=== PATIENT | female | born 1995 | race American Indian/Alaskan Native ===

== ENCOUNTER 2019-11-28 22:17 | Emergency (ER) | payer BC ==
[2019-11-28] MEDS ORDERED: diphenhydrAMINE 50 MG/ML VIAL IV STA (22:41)
[2019-11-28] MEDS ORDERED: METOCLOPRAMIDE 10 MG/2 ML INJ IV STA (22:41)
[2019-11-28] MEDS ORDERED: SODIUM CHLORIDE 0.9% 1000 ML 1,000 ML IV ONE (22:41)
[2019-11-28 22:49] LABS: Bilirubin,Urine NEG (Negative); Blood,Urine NEG (Negative); Color,Urine Yellow (Yellow); Mucus,Urine 3+ /HPF; Urobilinogen,Urine < 2.0 mg/dL (<2.0)
[2019-11-28 22:59] LABS: Hematocrit 40.9 % (30.3-42.9); Hemoglobin 14.2 gm/dl (10.1-14.3); Mean Corpuscular HGB Conc 35 % (30-34); Mean Corpuscular Volume 87 fl (79-97); Platelet Count 180 K/mm3 (140-440); Red Blood Count 4.72 M/mm3 (3.65-5.03); Red Cell Distribution Width 12.2 % (13.2-15.2)
[2019-11-28 23:19] LABS: Alanine Aminotransferase 18 units/L (7-56); Albumin 4.2 g/dL (3.9-5); BUN/Creatinine Ratio 16; Blood Urea Nitrogen 8 mg/dL (7-17); Calcium 9.6 mg/dL (8.4-10.2); Hemolysis Index 4
--- NOTE | 2019-11-29 | Emergency Department Report ---
ED Abdominal Pain HPI - General Chief Complaint: Nausea/Vomiting/Diarrhea Stated Complaint: 7WEEKS NAUSEA Time Seen by Provider: 11/28/19 23:24 Source: patient Mode of arrival: Ambulatory Limitations: No Limitations - History of Present Illness Initial Comments: 24-year-old -[place] female 7 weeks presents emergency department complaining of one-week history of nausea and vomiting which is been ongoing with no resolution. She follow-up with her primary care provider on this past Friday and was given 2 prescriptions for Reglan 5 mg and a Phenergan suppository but was unsuccessful at resolving her nausea and vomiting. Patient states she has been having cyclic morning sickness which has continued. She went to an urgent care prior to coming to the ER tonight but after close evaluation was advised to come to the ED in case she needed some IV fluids. She reports no hemoptysis no hematemesis no diarrhea or constipation no fevers chills or sweats. Location: diffuse Radiation: none Severity: mild Quality: aching Consistency: constant Improves With: nothing - Related Data Previous Rx's Medication Instructions Recorded Last Taken Type Pyridoxine HCl [Vitamin B-6 100MG 100 mg PO DAILY #20 tablet 11/29/19 Unknown Rx TAB] Allergies Allergy/AdvReac Type Severity Reaction Status Date / Time peanut Allergy Swelling Verified 11/28/19 22:22 ED Review of Systems ROS: Stated complaint: 7WEEKS NAUSEA Other details as noted in HPI Comment: All other systems reviewed and negative ED Past Medical Hx - Past Medical History Previous Medical History?: No - Surgical History Past Surgical History?: No - Social History Smoking Status: Never Smoker Substance Use Type: Alcohol - Medications Home Medications: Home Medications Medication Instructions Recorded Confirmed Last Taken Type Pyridoxine HCl [Vitamin B-6 100MG 100 mg PO DAILY #20 tablet 11/29/19 Unknown Rx TAB] ED Physical Exam - General Limitations: No Limitations General appearance: alert, in no apparent distress - Head Head exam: Present: atraumatic, normocephalic - Eye Eye exam: Present: normal appearance, PERRL, EOMI Pupils: Present: normal accommodation - ENT ENT exam: Present: mucous membranes moist - Neck Neck exam: Present: normal inspection - Respiratory Respiratory exam: Present: normal lung sounds bilaterally. Absent: respiratory distress - Cardiovascular Cardiovascular Exam: Present: regular rate, normal rhythm. Absent: systolic murmur, diastolic murmur, rubs, gallop - GI/Abdominal GI/Abdominal exam: Present: soft, normal bowel sounds - Extremities Exam Extremities exam: Present: normal inspection - Back Exam Back exam: Present: normal inspection - Neurological Exam Neurological exam: Present: alert, oriented X3 - Psychiatric Psychiatric exam: Present: normal affect, normal mood - Skin Skin exam: Present: warm, dry, intact, normal color. Absent: rash ED Course Vital Signs 11/28/19 22:21 Temperature 98.3 F Pulse Rate 79 Respiratory 18 Rate Blood Pressure 116/72 O2 Sat by Pulse 98 Oximetry ED Medical Decision Making - Lab Data Result diagrams: 11/28/19 22:46 11/28/19 22:46 - Medical Decision Making Female presents emergency department complaining of nausea and vomiting without diarrhea. The patient is overall well-appearing and suspected to have hyperemesis gravidarum. Given the history of examination he does not appear to be an emergency cause for the symptoms such as small bowel obstruction, coronary syndrome, bowel ischemia, DKA, pancreatitis, appendicitis, acute abdomen no emergent problem. Patient was treated with Reglan, Benadryl, fluids as well as vitamin D6. After treatment patient is feeling much better tolerating p.o. fluids shows no signs of dehydration Critical care attestation.: If time is entered above; I have spent that time in minutes in the direct care of this critically ill patient, excluding procedure time. ED Disposition Clinical Impression: Hyperemesis gravidarum Disposition: DC-01 TO HOME OR SELFCARE Is pt being admited?: No Does the pt Need Aspirin: No Condition: Stable Instructions: Hyperemesis Gravidarum (ED) Additional Instructions: Please continue with your Reglan that was given your provider call your provider will make them aware of the visit today for further treatment options Prescriptions: Pyridoxine HCl [Vitamin B-6 100MG TAB] 100 mg PO DAILY #20 tablet Referrals: PRIMARY CARE, [Primary Care Provider] - 3-5 Days [facility] [Provider Group] - 3-5 Days
[2019-11-29 02:58] VITALS: BP 114/76
[2019-11-29 03:40] LABS: Basophils % (Manual) 0 % (0.0-1.8); Eosinophils % (Manual) 0 % (0.0-4.3); Monocytes % (Manual) 0 % (0.0-7.3); Total Cells Counted 100
[2019-11-29 03:41] LABS: Burr Cells Rare; Platelet Estimate Consistent w Auto; Schistocytes Rare
[2019-11-29] MEDS ORDERED: PYRIDOXINE 50 MG TAB PO SCH (10:00)
== END 2019-11-29 02:58 | disposition home or self-care (01) ==
LOC: ED 22:17
DX: O21.0 Mild hyperemesis gravidarum (principal); Z91.010 Allergy to peanuts; Z3A.01 Less than 8 weeks gestation of pregnancy
CPT/HCPCS: 36415; 80053; 81001; 83690; 84702; 85007; 85025; 96361; 96374; 96375; 99283; J1200; J2765; J7030